=== PATIENT | male | born 1945 | race Caucasian/White ===

== ENCOUNTER 2017-12-26 12:56 | Day surgery (SDC) | payer MEDICARE, OTHER ==
[~2017-12-26] VITALS: Ht 188 cm; Wt 127.9 kg
[~2017-12-26 12:56] MED LIST: ACIDOPHILIS PO; ALLO300 PO; ASPI81EC PO; B Complex #11 EACH PO; B50; CLOP75 PO; DOC250 PO; FISH1000 PO; Flomax0.4 MG PO; KONSYL FIBER PO; LIVALO2 MG PO; METF500 PO; METO50ER PO; NITR100CA PO; OMEG1CAP30 PO; OXYACE5T PO; PREG100 PO; TAMS.4ER PO; Vitamin D400 UNI1 PO
[2018-09-19] MEDS ORDERED: ALLO300 PO (11:11)
[2018-09-19] MEDS ORDERED: PREG100 PO (11:11)
[2018-09-19] MEDS ORDERED: METO50ER PO (11:11)
[2018-09-19] MEDS ORDERED: Aspirin EC81 MG PO (11:11)
[2018-09-19] MEDS ORDERED: METF500C PO (11:12)
[2018-09-19] MEDS ORDERED: CLOP75 PO (11:12)
[2018-09-19] MEDS ORDERED: OMEG1CAP30 PO (11:12)
[2018-09-19] MEDS ORDERED: LOSA25 PO (11:12)
[2018-09-19] MEDS ORDERED: Percocet 5-3251 EACH PO (11:13)
[2018-11-10] MEDS ORDERED: METO25ER PO (14:29)
== END 2017-12-26 15:28 | disposition home or self-care (01) ==
LOC: ORSCSDS 12:56
PROVIDERS: Anesthesiology
PROC: 3E0R33Z Introduction of Anti-inflammatory into Spinal Canal, Percutaneous Approach (ICD-10-PCS; principal; 2017-12-26 08:15)
DX: M96.1 Postlaminectomy syndrome, not elsewhere classified (principal); M48.061 Spinal stenosis, lumbar region without neurogenic claudication; M54.16 Radiculopathy, lumbar region; I25.10 Atherosclerotic heart disease of native coronary artery without angina pectoris; I10 Essential (primary) hypertension; E78.00 Pure hypercholesterolemia, unspecified; K21.9 Gastro-esophageal reflux disease without esophagitis; E11.9 Type 2 diabetes mellitus without complications; Z79.84 Long term (current) use of oral hypoglycemic drugs; Z79.01 Long term (current) use of anticoagulants; Z79.899 Other long term (current) drug therapy
CPT/HCPCS: J1040

== ENCOUNTER 2018-05-10 19:51 | Emergency (ER) | payer MEDICARE, OTHER ==
[~2018-05-10] VITALS: Ht 188 cm; Wt 122.5 kg
[2018-05-10] MEDS ORDERED: ERYT1OIN RIGHTEYE (21:49)
== END 2018-05-10 21:58 | disposition home or self-care (01) ==
LOC: ER 19:51
DX: H57.11 Ocular pain, right eye (principal); E11.9 Type 2 diabetes mellitus without complications; I10 Essential (primary) hypertension; Z88.8 Allergy status to other drugs, medicaments and biological substances; Z91.09 Other allergy status, other than to drugs and biological substances; Z88.0 Allergy status to penicillin; Z79.899 Other long term (current) drug therapy; Z79.82 Long term (current) use of aspirin; Z87.442 Personal history of urinary calculi
CPT/HCPCS: 99284; J7030

== ENCOUNTER 2018-11-18 07:34 | Day surgery (SDC) | payer MEDICARE, OTHER ==
[~2018-11-18] VITALS: Ht 188 cm; Wt 120.6 kg
[~2018-11-18 07:34] MED LIST changes: +Aspirin EC81 MG PO; +ERYT1OIN RIGHTEYE; +LOSA25 PO; +METF500C PO; +METO25ER PO; +Percocet 5-3251 EACH PO
== END 2018-11-18 10:05 | disposition home or self-care (01) ==
LOC: ORSCSDS 07:34
PROVIDERS: Internal Medicine Gastroenterology
PROC: 0DBL8ZX Excision of Transverse Colon, Via Natural or Artificial Opening Endoscopic, Diagnostic (ICD-10-PCS; principal; 2018-11-18 08:45)
PROC: 0DBK8ZX Excision of Ascending Colon, Via Natural or Artificial Opening Endoscopic, Diagnostic (ICD-10-PCS; principal; 2018-11-18 08:45)
DX: Z86.010 Personal history of colon polyps (principal); D12.3 Benign neoplasm of transverse colon; K64.8 Other hemorrhoids; K57.30 Diverticulosis of large intestine without perforation or abscess without bleeding; K75.81 Nonalcoholic steatohepatitis (NASH); E11.9 Type 2 diabetes mellitus without complications; E78.5 Hyperlipidemia, unspecified; I10 Essential (primary) hypertension; Z79.01 Long term (current) use of anticoagulants; Z79.82 Long term (current) use of aspirin; Z79.84 Long term (current) use of oral hypoglycemic drugs; Z79.899 Other long term (current) drug therapy
CPT/HCPCS: 82947; 88305; J7120

== ENCOUNTER 2018-12-18 12:18 | Day surgery (SDC) | payer MEDICARE, OTHER ==
[~2018-12-18] VITALS: Ht 188 cm; Wt 122.0 kg
== END 2018-12-18 14:53 | disposition home or self-care (01) ==
LOC: ORSCSDS 12:18
PROVIDERS: Ophthalmology
PROC: 08RK3JZ Replacement of Left Lens with Synthetic Substitute, Percutaneous Approach (ICD-10-PCS; principal; 2018-12-18 14:00)
DX: H25.12 Age-related nuclear cataract, left eye (principal); E11.36 Type 2 diabetes mellitus with diabetic cataract; I10 Essential (primary) hypertension; I25.10 Atherosclerotic heart disease of native coronary artery without angina pectoris; I49.9 Cardiac arrhythmia, unspecified; I49.3 Ventricular premature depolarization; K74.60 Unspecified cirrhosis of liver; E66.01 Morbid (severe) obesity due to excess calories; Z68.34 Body mass index [BMI] 34.0-34.9, adult; Z79.82 Long term (current) use of aspirin; Z79.84 Long term (current) use of oral hypoglycemic drugs; Z79.899 Other long term (current) drug therapy
CPT/HCPCS: 82947; J2001; J2250; J3010; J7120; V2632

== ENCOUNTER 2019-01-15 11:53 | Day surgery (SDC) | payer MEDICARE, OTHER ==
[~2019-01-15] VITALS: Ht 188 cm; Wt 121.3 kg
--- NOTE | 2019-01-15 12:41 | NUR ---
01/15/19 1241 Clyde Sims CALL LIGHT WITHIN REACH
--- NOTE | 2019-01-15 16:46 | NUR ---
01/15/19 1646 Levi Le LATE ENTRY NARRATIVE PATIENT RESTING IN SDU RECLINER, VSS, TOLERATING PO FLUIDS WELL, SPOUSE IS CHAIRSIDE. DISCHARGE INSTRUCTIONS REVIEWED WITH PATIENT AND SPOUSE, BOTH DENY ANY QUESTIONS AT THIS TIME. NURSE ASSISTED PATIENT OUT TO HIS RIDE HOME.
== END 2019-01-15 13:40 | disposition home or self-care (01) ==
LOC: ORSCSDS 11:53
PROVIDERS: Ophthalmology
PROC: 08RJ3JZ Replacement of Right Lens with Synthetic Substitute, Percutaneous Approach (ICD-10-PCS; principal; 2019-01-15 13:30)
DX: H25.11 Age-related nuclear cataract, right eye (principal); I10 Essential (primary) hypertension; E11.9 Type 2 diabetes mellitus without complications; I25.10 Atherosclerotic heart disease of native coronary artery without angina pectoris; Z79.82 Long term (current) use of aspirin; Z79.899 Other long term (current) drug therapy
CPT/HCPCS: 82947; J2001; J2250; J3010; J7040; V2632

== ENCOUNTER 2019-05-28 08:35 | Day surgery (SDC) | payer MEDICARE, OTHER ==
[~2019-05-28] VITALS: Ht 188 cm; Wt 127.8 kg
== END 2019-05-28 09:44 | disposition home or self-care (01) ==
LOC: ORSCSDS 08:35
PROVIDERS: Anesthesiology
PROC: 3E0R33Z Introduction of Anti-inflammatory into Spinal Canal, Percutaneous Approach (ICD-10-PCS; principal; 2019-05-28 10:00)
DX: M96.1 Postlaminectomy syndrome, not elsewhere classified (principal); M54.16 Radiculopathy, lumbar region; I10 Essential (primary) hypertension; I25.10 Atherosclerotic heart disease of native coronary artery without angina pectoris; Z79.01 Long term (current) use of anticoagulants; Z79.899 Other long term (current) drug therapy
CPT/HCPCS: 82947; J1040; J2001

== ENCOUNTER 2019-09-07 04:35 | Emergency (ER) | payer MEDICARE, OTHER ==
[~2019-09-07] VITALS: Ht 188 cm; Wt 123.8 kg
[2019-09-07] MEDS ORDERED: OXYC10TA19 PO (05:05)
== END 2019-09-07 05:40 | disposition home or self-care (01) ==
LOC: ER 04:35
DX: G89.29 Other chronic pain (principal); M54.5 Low back pain; Z88.8 Allergy status to other drugs, medicaments and biological substances; Z88.0 Allergy status to penicillin; Z79.899 Other long term (current) drug therapy; Z79.82 Long term (current) use of aspirin; Z79.84 Long term (current) use of oral hypoglycemic drugs; E11.9 Type 2 diabetes mellitus without complications; I10 Essential (primary) hypertension
CPT/HCPCS: 96372; 99283-25; J1170; J1885

== ENCOUNTER 2019-09-14 10:50 | Day surgery (SDC) | payer MEDICARE, OTHER ==
[~2019-09-14] VITALS: Ht 188 cm; Wt 127.9 kg
[~2019-09-14 10:50] MED LIST changes: +OXYC10TA19 PO
[2019-09-14] MEDS ORDERED: HYDMOR2 (11:18)
[2019-09-14] MEDS ORDERED: ACET500 (11:19)
[2019-09-14] MEDS ORDERED: VITAMIN D31000 UNI2 PO (11:19)
[2019-09-14] MEDS ORDERED: ACIDOPHILUS1 EACH (11:19)
[2019-09-14] MEDS ORDERED: IBUP600 (11:20)
== END 2019-09-14 12:10 | disposition home or self-care (01) ==
LOC: ORSCSDS 10:50
PROVIDERS: Anesthesiology
PROC: 3E0R33Z Introduction of Anti-inflammatory into Spinal Canal, Percutaneous Approach (ICD-10-PCS; principal; 2019-09-14 11:45)
DX: M96.1 Postlaminectomy syndrome, not elsewhere classified (principal); M54.16 Radiculopathy, lumbar region; E66.9 Obesity, unspecified; Z68.36 Body mass index [BMI] 36.0-36.9, adult; E11.9 Type 2 diabetes mellitus without complications; Z79.01 Long term (current) use of anticoagulants; Z79.84 Long term (current) use of oral hypoglycemic drugs; Z79.899 Other long term (current) drug therapy
CPT/HCPCS: J1040

== ENCOUNTER 2019-11-05 06:38 | Day surgery (SDC) | payer MEDICARE, OTHER ==
[~2019-11-05] VITALS: Ht 188 cm; Wt 126.0 kg
[~2019-11-05 06:38] MED LIST changes: +ACET500; +ACIDOPHILUS1 EACH; +HYDMOR2; +IBUP600; +VITAMIN D31000 UNI2 PO
== END 2019-11-05 09:20 | disposition home or self-care (01) ==
LOC: ORSCSDS 06:38
PROVIDERS: Internal Medicine Gastroenterology
PROC: 0DBL8ZX Excision of Transverse Colon, Via Natural or Artificial Opening Endoscopic, Diagnostic (ICD-10-PCS; principal; 2019-11-05 08:00)
PROC: 0DJ08ZZ Inspection of Upper Intestinal Tract, Via Natural or Artificial Opening Endoscopic (ICD-10-PCS; principal; 2019-11-05 08:00)
PROC: 0DBK8ZX Excision of Ascending Colon, Via Natural or Artificial Opening Endoscopic, Diagnostic (ICD-10-PCS; principal; 2019-11-05 08:00)
DX: Z12.11 Encounter for screening for malignant neoplasm of colon (principal); Z86.010 Personal history of colon polyps; D12.2 Benign neoplasm of ascending colon; D12.3 Benign neoplasm of transverse colon; K64.4 Residual hemorrhoidal skin tags; K57.30 Diverticulosis of large intestine without perforation or abscess without bleeding; I85.00 Esophageal varices without bleeding; E11.9 Type 2 diabetes mellitus without complications; K74.60 Unspecified cirrhosis of liver; I10 Essential (primary) hypertension; E78.5 Hyperlipidemia, unspecified; Z79.82 Long term (current) use of aspirin; Z79.899 Other long term (current) drug therapy
CPT/HCPCS: 82947; 88305; J0330; J0461; J2405; J2704; J7120

== ENCOUNTER 2021-03-08 10:48 | Day surgery (SDC) | payer MEDICARE, OTHER ==
[~2021-03-08] VITALS: Ht 188 cm; Wt 121.6 kg
== END 2021-03-08 11:30 | disposition home or self-care (01) ==
LOC: ORSCSDS 10:48
PROVIDERS: Anesthesiology
PROC: 3E0R33Z Introduction of Anti-inflammatory into Spinal Canal, Percutaneous Approach (ICD-10-PCS; principal; 2021-03-08 11:30)
DX: M54.16 Radiculopathy, lumbar region (principal); M96.1 Postlaminectomy syndrome, not elsewhere classified; I10 Essential (primary) hypertension; E11.9 Type 2 diabetes mellitus without complications; I48.91 Unspecified atrial fibrillation; K21.9 Gastro-esophageal reflux disease without esophagitis; E66.8 Other obesity; Z68.34 Body mass index [BMI] 34.0-34.9, adult; Z79.82 Long term (current) use of aspirin; Z79.899 Other long term (current) drug therapy
CPT/HCPCS: J1040

== ENCOUNTER 2021-04-11 10:29 | Day surgery (SDC) | payer MEDICARE, OTHER ==
[~2021-04-11] VITALS: Ht 188 cm; Wt 119.0 kg
== END 2021-04-11 11:55 | disposition home or self-care (01) ==
LOC: ORSCSDS 10:29
PROVIDERS: Anesthesiology
PROC: 3E0R33Z Introduction of Anti-inflammatory into Spinal Canal, Percutaneous Approach (ICD-10-PCS; principal; 2021-04-11 11:30)
DX: M54.16 Radiculopathy, lumbar region (principal); I10 Essential (primary) hypertension; E11.9 Type 2 diabetes mellitus without complications; E78.5 Hyperlipidemia, unspecified; Z79.82 Long term (current) use of aspirin; Z79.899 Other long term (current) drug therapy
CPT/HCPCS: 82947; J1040

== ENCOUNTER 2022-01-11 08:32 | Day surgery (SDC) | payer MEDICARE, OTHER ==
[~2022-01-11] VITALS: Ht 188 cm; Wt 114.5 kg
[2022-01-11] MEDS ORDERED: FERROUS SULFAT325 M3 (08:58)
[2022-01-11] MEDS ORDERED: FARXIGA10 MG (08:58)
== END 2022-01-11 10:58 | disposition home or self-care (01) ==
LOC: ORSCSDS 08:32
PROVIDERS: Internal Medicine Gastroenterology
PROC: 0DJ08ZZ Inspection of Upper Intestinal Tract, Via Natural or Artificial Opening Endoscopic (ICD-10-PCS; principal; 2022-01-11 09:45)
PROC: 0DBL8ZX Excision of Transverse Colon, Via Natural or Artificial Opening Endoscopic, Diagnostic (ICD-10-PCS; principal; 2022-01-11 09:45)
DX: K74.60 Unspecified cirrhosis of liver (principal); Z12.11 Encounter for screening for malignant neoplasm of colon; Z86.010 Personal history of colon polyps; K64.4 Residual hemorrhoidal skin tags; K57.30 Diverticulosis of large intestine without perforation or abscess without bleeding; K76.6 Portal hypertension; K31.89 Other diseases of stomach and duodenum; K75.81 Nonalcoholic steatohepatitis (NASH); I85.00 Esophageal varices without bleeding; D12.3 Benign neoplasm of transverse colon; E11.9 Type 2 diabetes mellitus without complications; Z79.82 Long term (current) use of aspirin; Z79.84 Long term (current) use of oral hypoglycemic drugs; Z79.899 Other long term (current) drug therapy
CPT/HCPCS: 82947; 88305; J2704; J7120

== ENCOUNTER → 2022-02-18 | Outpatient (CLI) | payer MEDICARE, OTHER ==
[~2022-02-18] MED LIST changes: +FARXIGA10 MG; +FERROUS SULFAT325 M3
[2022-03-23 12:11] LABS: CA OXALATE DIHYDRATE 10 % (.); CALCIUM OXALATE MONOHYDRATE 90 % (.); COLOR Brown (.); SIZE 4x4 mm (.); WEIGHT 55 mg (.)
== END | disposition home or self-care (01) ==
LOC: LAB 01:30 → LAB SHORT 01:30
PROVIDERS: Internal Medicine
DX: N20.0 Calculus of kidney (principal)
CPT/HCPCS: 82365

== ENCOUNTER 2022-10-22 09:22 | Emergency (ER) | payer MEDICARE, OTHER ==
[~2022-10-22] VITALS: Ht 188 cm; Wt 115.7 kg
[2022-10-22 10:04] LABS: Source, Urine Clean Catch
[2022-10-22 10:09] LABS: Appearance, Urine Clear (Clear); Bilirubin, Urine Neg (Neg); Blood, Urine 4+ (Neg); Color, Urine Yellow (P-Yellow); Glucose Qualitative, Urine Neg (Neg); Ketones, Urine Neg (Neg); Leukocyte Esterase, Urine Neg (Neg); Nitrite, Urine Neg (Neg); Protein, Urine 2+ (Neg); Specific Gravity, Urine 1.015 (1.003-1.022); Urobilinogen, Urine NORM (Normal)
[2022-10-22 10:14] LABS: White Blood Cells, Urine 0-2 /hpf (0-5)
[2022-10-22 10:15] LABS: Bacteria Rare /hpf; Squamous Epithelial Cells Not Seen /hpf (Few)
[2022-10-22 10:21] LABS: BASOPHILS ABSOLUTE AUTO 0.02 K/mm3 (0.00-0.23); BASOPHILS PERCENT AUTO 0 % (0-2); EOSINOPHILS ABSOLUTE AUTO 0.08 K/mm3 (0.00-0.68); EOSINOPHILS PERCENT AUTO 1 % (0-6); Hematocrit 40.1 % (37.0-53.0); Hemoglobin 13.7 g/dL (13.5-17.5); IMMATURE GRAN ABSOLUTE AUTO 0.03 K/mm3 (0.00-0.10); IMMATURE GRAN PERCENT AUTO 0 % (0-1); LYMPHOCYTES PERCENT AUTO 10 % (21-46); MONOCYTES ABSOLUTE AUTO 0.88 K/mm3 (0.16-1.47); MONOCYTES PERCENT AUTO 9 % (4-13); Mean Corpuscular HGB 29.3 pg (26.0-34.0); Mean Corpuscular HGB Conc 34.2 g/dL (31.5-36.5); Mean Corpuscular Volume 86 fL (80-100); Mean Platelet Volume 12.2 fL (9.1-12.4); NEUTROPHILS ABSOLUTE AUTO 7.92 K/mm3 (1.96-9.15); NEUTROPHILS PERCENT AUTO 80 % (41-73); Platelet Count 121 K/mm3 (150-400); RDW Coefficient Variation 13.9 % (11.7-14.2); RDW Standard Deviation 43.8 fL (35.1-46.3); Red Blood Cell Count 4.68 M/mm3 (4.30-5.90); White Blood Cell Count 9.93 K/mm3 (4.00-11.30)
[2022-10-22 10:38] LABS: Albumin, Blood 3.6 g/dL (3.4-5.0); Albumin/Globulin Ratio 0.9 (0.8-1.8); Bilirubin, Total 0.8 mg/dL (0.1-1.0); Bun/Creatinine Ratio 24.7 (12.0-20.0); Calcium, Blood 9.1 mg/dL (8.5-10.1); Creatinine, Blood 0.77 mg/dL (0.60-1.20); Globulin, Blood 3.8 g/dL (2.2-4.0); Potassium, Blood 4.3 mmol/L (3.5-5.5); Total Protein, Blood 7.4 g/dL (6.4-8.2)
[2022-10-22] MEDS ORDERED: HYDR1TAB94 PO (10:53)
[2022-10-22] MEDS ORDERED: TAMS.4ER PO (10:53)
== END 2022-10-22 11:31 | disposition home or self-care (01) ==
LOC: ER 09:22
PROVIDERS: Physician Assistant
DX: N13.2 Hydronephrosis with renal and ureteral calculous obstruction (principal); I10 Essential (primary) hypertension; E11.65 Type 2 diabetes mellitus with hyperglycemia; Z88.8 Allergy status to other drugs, medicaments and biological substances; Z88.0 Allergy status to penicillin; Z79.899 Other long term (current) drug therapy; Z79.82 Long term (current) use of aspirin; Z79.84 Long term (current) use of oral hypoglycemic drugs
CPT/HCPCS: 36415; 74176; 80053; 81001; 85025; J1885

== ENCOUNTER 2023-04-11 07:39 | Day surgery (SDC) | payer MEDICARE, OTHER ==
[~2023-04-11] VITALS: Ht 188 cm; Wt 117.4 kg
[~2023-04-11 07:39] MED LIST changes: +HYDR1TAB94 PO
[2023-04-11 09:29] VITALS: BP 120/57
== END 2023-04-11 09:20 | disposition home or self-care (01) ==
LOC: ORSCSDS 07:39
PROVIDERS: Internal Medicine Gastroenterology
PROC: 0DJ08ZZ Inspection of Upper Intestinal Tract, Via Natural or Artificial Opening Endoscopic (ICD-10-PCS; principal; 2023-04-11 08:45)
DX: I85.00 Esophageal varices without bleeding (principal); K74.60 Unspecified cirrhosis of liver; K76.6 Portal hypertension; K31.89 Other diseases of stomach and duodenum; Z79.82 Long term (current) use of aspirin; Z79.899 Other long term (current) drug therapy
CPT/HCPCS: 82947; J2704; J7120

== ENCOUNTER 2024-03-24 08:25 | Day surgery (SDC) | payer MEDICARE, OTHER ==
[~2024-03-24 08:25] MED LIST changes: +Lactated Ringer's 1,000 ML IV ONE; +propofoL 50 ML IV ONE
[2024-03-24] MEDS ORDERED: Lactated Ringer's 1,000 ML IV ONE (08:56)
[2024-03-24] MEDS ORDERED: CLOP75 (09:03)
[2024-03-24] MEDS ORDERED: PANT40 (09:03)
[2024-03-24] MEDS ORDERED: EZET10 (09:04)
[2024-03-24] MEDS ORDERED: Inderal40 MG (09:04)
[2024-03-24] MEDS ORDERED: PRAV20 (09:04)
[2024-03-24] MEDS ORDERED: TURMERIC500 M2 (09:05)
[2024-03-24] MEDS ORDERED: Vitamin B Comple1 EA (09:05)
[2024-03-24 11:06] VITALS: BP 100/62
== END 2024-03-24 10:46 | disposition home or self-care (01) ==
LOC: ORSCSDS 08:25
PROVIDERS: Internal Medicine Gastroenterology
PROC: 0DJ08ZZ Inspection of Upper Intestinal Tract, Via Natural or Artificial Opening Endoscopic (ICD-10-PCS; principal; 2024-03-24 09:45)
DX: I85.00 Esophageal varices without bleeding (principal); K55.20 Angiodysplasia of colon without hemorrhage; K74.60 Unspecified cirrhosis of liver; K75.81 Nonalcoholic steatohepatitis (NASH); E11.9 Type 2 diabetes mellitus without complications; Z79.84 Long term (current) use of oral hypoglycemic drugs; Z79.899 Other long term (current) drug therapy
CPT/HCPCS: 82947; J2704; J7120

== ENCOUNTER 2025-01-11 06:44 | Day surgery (SDC) | payer MEDICARE, OTHER ==
[~2025-01-11] VITALS: Ht 188 cm; Wt 111.5 kg
[~2025-01-11 06:44] MED LIST changes: +CLOP75; +EZET10; +Inderal40 MG; -Lactated Ringer's 1,000 ML IV ONE; +PANT40; +PRAV20; +TURMERIC500 M2; +Vitamin B Comple1 EA; -propofoL 50 ML IV ONE
[2025-01-11] MEDS ORDERED: PLAVIX75 MG (07:14)
[2025-01-11] MEDS ORDERED: CARV3.125 PO (07:15)
[2025-01-11] MEDS ORDERED: Lactated Ringer's 1,000 ML IV ONE ×2 (07:27→08:02)
[2025-01-11] MEDS ORDERED: propofoL 50 ML IV ONE (07:27)
[2025-01-11 09:23] VITALS: BP 116/57
== END 2025-01-11 09:25 | disposition home or self-care (01) ==
LOC: ORSCSDS 06:44
PROVIDERS: Specialist
PROC: 0DJ08ZZ Inspection of Upper Intestinal Tract, Via Natural or Artificial Opening Endoscopic (ICD-10-PCS; principal; 2025-01-11 08:00)
PROC: 0DBL8ZX Excision of Transverse Colon, Via Natural or Artificial Opening Endoscopic, Diagnostic (ICD-10-PCS; principal; 2025-01-11 08:00)
DX: R19.4 Change in bowel habit (principal); K74.60 Unspecified cirrhosis of liver; Z86.0100 Personal history of colon polyps, unspecified; I85.00 Esophageal varices without bleeding; D12.3 Benign neoplasm of transverse colon; K64.8 Other hemorrhoids; K57.30 Diverticulosis of large intestine without perforation or abscess without bleeding; E11.9 Type 2 diabetes mellitus without complications; Z79.02 Long term (current) use of antithrombotics/antiplatelets; Z79.84 Long term (current) use of oral hypoglycemic drugs; Z79.899 Other long term (current) drug therapy
CPT/HCPCS: 82947; 88305; J2704; J7120